=== PATIENT | male | born 1985 | race Hispanic/Latino ===

== ENCOUNTER 2020-05-02 12:07 | Emergency (ER) | payer OTHER ==
[2020-05-02] MEDS ORDERED: DIAZEPAM 5 MG TABLET ONE (12:53)
[2020-05-02] MEDS ORDERED: NA CHLORIDE 0.9% 1,000 ML ONE (12:53)
[2020-05-02 13:00] LABS: Absolute Lymphocytes (CBC) 1.3 K/uL (0.7-4.9); Basophils % 0.6 % (0-1.3); Hematocrit 41.2 % (39.6-49.0); Lymphocytes % 26.7 % (15.3-44.8); MPV 7.5 fL (7.6-11.3); RBC Red Blood Cell Count 4.38 M/uL (4.33-5.43)
[2020-05-02 13:12] LABS: Protime INR 0.97
[2020-05-02 13:16] LABS: Barbiturates NEGATIVE (NEGATIVE); Benzodiazepines NEGATIVE (NEGATIVE); Cocaine NEGATIVE (NEGATIVE); METHAMPHETAM NEGATIVE (NEGATIVE); Methadone NEGATIVE (NEGATIVE); Opiates NEGATIVE (NEGATIVE); Phencyclidine NEGATIVE (NEGATIVE); THC Cannibis NEGATIVE (NEGATIVE)
[2020-05-02 13:35] LABS: ALT/SGPT 28 U/L (12-78); Alkaline Phosphatase 54 U/L (45-117); BUN Blood Urea Nitrogen 6 mg/dL (7-18); Bicarbonate 26 mmol/L (21-32); Bilirubin Direct < 0.1 mg/dL (0-0.2); Bilirubin Total 0.2 mg/dL (0.2-1.0); Glucose Level 95 mg/dL (74-106); Protein, Total 8.2 g/dL (6.4-8.2); Sodium Level 144 mmol/L (136-145)
[2020-05-02 13:38] LABS: AST/SGOT 28 U/L (15-37); Potassium 3.7 mmol/L (3.5-5.1)
[2020-05-02 13:45] LABS: Urine Blood NEGATIVE (NEG); Urine Glucose NEGATIVE (NEG); Urine Protein NEGATIVE (NEG); Urine pH 6.5 (5.0-7.0)
[2020-05-02] MEDS ORDERED: LORazepam 2 MG/ML VIAL ONE (14:20)
--- NOTE | 2020-05-02 16:36 | EDPHYS ---
Physician Documentation [facility] Name: Victor Hugo Broussard JR. Age: 34 yrs Sex: Male : 1985 Arrival Date: 05/02/2020 Time: 12:08 Bed 17 Private MD: ED Physician Pelon Rogel HPI: 05/02 15:43 This 34 yrs old Male presents to ER via Law Enforcement with complaints of rn ALCOHOL ABUSE, Depression. 15:43 The patient presents to the emergency department with depression. Onset: The rn symptoms/episode began/occurred at an unknown time. Severity of symptoms: At their worst the symptoms were moderate in the emergency department the symptoms are unchanged. The patient has experienced similar episodes in the past. Reports drinking a lot since recent divorce, today told mother that having thoughts of , tells me was just talk, denies suicidal ideations at this moment, attributes it to heavy drinking, did not have a plan, and now states would not hurt himself because loves his ex- and children and wants to be there for them, plans to enroll in rehab program/facility. . Historical: - Allergies: 12:15 No Known Allergies; bp - Home Meds: 12:15 None [Active]; bp - PMHx: 12:15 None; bp - Immunization history:: Adult Immunizations up to date. - Social history:: Smoking status: Patient denies any tobacco usage or history of. Patient uses alcohol, patient/guardian reports recent binge of alcohol consumption. - Family history:: not pertinent. - Hospitalizations: : No recent hospitalization is reported. ROS: 15:43 Constitutional: Negative for fever, chills, and weight loss, Eyes: Negative for injury, rn pain, redness, and discharge, Neck: Negative for injury, pain, and swelling, Cardiovascular: Negative for chest pain, palpitations, and edema, Respiratory: Negative for shortness of breath, cough, wheezing, and pleuritic chest pain, Abdomen/GI: Negative for abdominal pain, nausea, vomiting, diarrhea, and constipation, MS/Extremity: Negative for injury and deformity, Skin: Negative for injury, rash, and discoloration, Neuro: Negative for headache, weakness, numbness, tingling, and seizure, Psych: Negative for homicidal ideation, and hallucinations. Exam: 14:04 ECG was reviewed by the Attending Physician. rn 15:43 Constitutional: This is a well developed, well nourished patient who is awake, alert, rn and in no acute distress. Tearful. Head/Face: Normocephalic, atraumatic. Cardiovascular: Regular rate and rhythm. No pulse deficits. Respiratory: No increased work of breathing, no retractions or nasal flaring. Abdomen/GI: Soft, non-tender Skin: Warm, dry MS/ Extremity: Pulses equal, no cyanosis. Neurovascular intact. Full, normal range of motion. Equal circumference. Neuro: Awake and alert, GCS 15, oriented to person, place, time, and situation. Cranial nerves II-XII grossly intact. Motor strength 5/5 in all extremities. Sensory grossly intact. Vital Signs: 12:09 BP 160 / 101; Pulse 89; Resp 18; Temp 98.3; Pulse Ox 99% ; bp 14:00 BP 157 / 99; Pulse 90; Resp 17; Pulse Ox 98% ; bp 16:00 BP 155 / 89; Pulse 81; Resp 17; Temp 98.4; Pulse Ox 98% ; bp MDM: 12:20 Patient medically screened. rn 16:33 Differential diagnosis: depression, ETOH intoxication. Data reviewed: vital signs, rn nurses notes, lab test result(s), and as a result, I will discharge patient. Counseling: I had a detailed discussion with the patient and/or guardian regarding: the historical points, exam findings, and any diagnostic results supporting the discharge/admit diagnosis, lab results, the need for outpatient follow up, to return to the emergency department if symptoms worsen or persist or if there are any questions or concerns that arise at home. Response to treatment: the patient's symptoms have markedly improved after treatment, and as a result, I will discharge patient. Special discussion: I discussed with the patient/guardian in detail that at this point there is no indication for admission to the hospital. It is understood, however, that if the symptoms persist or worsen the patient needs to return immediately for re-evaluation. Based on the history and exam findings, there is no indication for further emergent testing or inpatient evaluation. I discussed with the patient/guardian the need to see the psychiatrist for further evaluation of the symptoms. ED course: Pt sober, denies to me and nurse suicidal ideations, reports feels like just drank too much, knows drinking led him to his current situation, plans to seek rehab. Never had a plan, feels better now, spent half an hour speaking with liner reroll tender and feels better. . 05/02 12:29 Order name: Acetaminophen rn 05/02 12:29 Order name: Basic Metabolic Panel rn 05/02 12:29 Order name: CBC with Diff rn 05/02 12:29 Order name: ETOH Level rn 05/02 12:29 Order name: Hepatic Function rn 05/02 12:29 Order name: PT-INR; Complete Time: 16:20 rn 05/02 12:29 Order name: Ptt, Activated; Complete Time: 16:20 rn 05/02 12:29 Order name: Salicylate; Complete Time: 16:20 rn 05/02 12:29 Order name: Urine Drug Screen; Complete Time: 16:20 rn 05/02 12:30 Order name: Acetaminophen Level; Complete Time: 16:20 EDMS 05/02 12:30 Order name: Basic Metabolic Panel; Complete Time: 16:20 EDOK 05/02 12:30 Order name: CBC with Automated Diff; Complete Time: 16:20 EDOK 05/02 12:30 Order name: Alcohol Serum/Plasma; Complete Time: 16:20 EDMS 05/02 12:30 Order name: Liver (Hepatic) Function; Complete Time: 16:20 EDOK 05/02 12:29 Order name: EKG; Complete Time: 12:31 rn 05/02 12:29 Order name: EKG - Nurse/Tech; Complete Time: 12:55 rn 05/02 12:29 Order name: IV Saline Lock; Complete Time: 12:55 rn 05/02 12:29 Order name: Labs collected and sent; Complete Time: 12:55 rn 05/02 12:29 Order name: Urine Dipstick-Ancillary (obtain specimen); Complete Time: 12:55 rn 05/02 13:12 Order name: Urine Dipstick--Ancillary (enter results); Complete Time: 16:20 bd 05/02 15:01 Order name: Diet Finger Food; Complete Time: 15:01 bd EC:04 Rate is 81 beats/min. Rhythm is regular. QRS Goehner is Normal. DE interval is normal. QRS rn interval is normal. QT interval is normal. No Q waves. T waves are Normal. No ST changes noted. Clinical impression: Normal ECG. Interpreted by me. Reviewed by me. Administered Medications: 12:56 Drug: NS 0.9% 1000 ml Route: IV; Rate: 1000 ml; Site: right forearm; ca1 16:52 Follow up: IV Status: Completed infusion; IV Intake: 1000ml bp 12:57 Drug: Valium 5 mg Route: PO; ca1 15:55 Follow up: Response: No adverse reaction bp Disposition: 05/02/20 16:35 Discharged to Home. Impression: Alcohol abuse with intoxication, Depression, unspecified. - Condition is Stable. - Discharge Instructions: Alcohol Intoxication, Alcohol Use Disorder. - Medication Reconciliation Form, Thank You Letter, Antibiotic Education, Prescription Opioid Use form. - Follow up: Private Physician; When: As needed; Reason: Recheck today's complaints, Re-evaluation by your physician. - Problem is new. - Symptoms have improved. Signatures: Dispatcher [employer] EDMS Pelon Rogel MD MD rn Peltier, Brian RN RN bp Cynthia Rodriguez RN RN ca1 Corrections: (The following items were deleted from the chart) 16:52 16:35 05/02/2020 16:35 Discharged to Home. Impression: Alcohol abuse with intoxication; bp Depression, unspecified. Condition is Stable. Forms are Medication Reconciliation Form, Thank You Letter, Antibiotic Education, Prescription Opioid Use. Follow up: Private Physician; When: As needed; Reason: Recheck today's complaints, Re-evaluation by your physician. Problem is new. Symptoms have improved. rn
--- NOTE | 2020-05-02 16:36 | ER ---
Nurse's Notes [facility] Name: Victor Hugo Broussard JR. Age: 34 yrs Sex: Male : 1985 Arrival Date: 05/02/2020 Time: 12:08 Bed 17 Private MD: Diagnosis: Alcohol abuse with intoxication;Depression, unspecified Presentation: 05/02 12:09 Chief complaint: WELFARE CHECK CALLED BY FAMILY, [employer] ARRIVED ON SCENE TO FIND PT bp ARGUING WITH FAMILY, +ETOH INTOXICATION. PER FAMILY, PT HAS BEEN BINGE DRINKING AND STATING +SI WHILE INTOXICATED FOR 3 DAYS. ALL 2/2 RECENT DIVORCE. PT NOW STATING HE IS NOT SI, BUT IS DEPRESSED AND INTERESTED IN RECEIVING HELP. Coronavirus screen: Proceed with normal triage. Ebola Screen: No symptoms or risks identified at this time. Initial Sepsis Screen: Does the patient meet any 2 criteria? No. Patient's initial sepsis screen is negative. Does the patient have a suspected source of infection? No. Patient's initial sepsis screen is negative. Risk Assessment: Do you want to hurt yourself or someone else? Other: RECENT, BUT PT DENIES CURRENTLY. Onset of symptoms is unknown. 12:09 Method Of Arrival: Law Enforcement: [place] [employer] bp 12:09 Acuity: [place] 2 bp Triage Assessment: 12:15 General: Appears in no apparent distress. comfortable, Behavior is cooperative, bp appropriate for age, anxious. General: Smells of alcohol. Pain: Denies pain. EENT: No deficits noted. Neuro: Level of Consciousness is awake, alert, obeys commands, Oriented to person, place, time, situation, Appropriate for age. Cardiovascular: No deficits noted. Respiratory: No deficits noted. GI: No signs and/or symptoms were reported involving the gastrointestinal system. : No signs and/or symptoms were reported regarding the genitourinary system. Derm: No deficits noted. Musculoskeletal: No deficits noted. Historical: - Allergies: 12:15 No Known Allergies; bp - Home Meds: 12:15 None [Active]; bp - PMHx: 12:15 None; bp - Immunization history:: Adult Immunizations up to date. - Social history:: Smoking status: Patient denies any tobacco usage or history of. Patient uses alcohol, patient/guardian reports recent binge of alcohol consumption. - Family history:: not pertinent. - Hospitalizations: : No recent hospitalization is reported. Screenin:16 Abuse screen: Denies threats or abuse. Denies injuries from another. Nutritional bp screening: No deficits noted. Tuberculosis screening: No symptoms or risk factors identified. Fall Risk None identified. Assessment: 12:16 General: SEE TRIAGE NOTE. bp 14:00 Reassessment: PT SLEEPING AFTER LENGTHY CONVERSATION WITH DIGITAL SALES PLANNER. PT CONTINUES TO bp DENY SI/HI. 16:49 Reassessment: PT D/C HOME AMBULATORY WITH FAMILY, DENIES SI/HI, DX WITH ALCOHOL ABUSE bp AND DEPRESSION. Vital Signs: 12:09 BP 160 / 101; Pulse 89; Resp 18; Temp 98.3; Pulse Ox 99% ; bp 14:00 BP 157 / 99; Pulse 90; Resp 17; Pulse Ox 98% ; bp 16:00 BP 155 / 89; Pulse 81; Resp 17; Temp 98.4; Pulse Ox 98% ; bp ED Course: 12:08 Patient arrived in ED. bp 12:14 Triage completed. bp 12:15 Arm band placed on. bp 12:16 Patient has correct armband on for positive identification. Bed in low position. Call bp light in reach. Side rails up X2. 12:20 Pelon Rogel MD is Attending Physician. rn 12:43 Kobe Renteria, KETTY is Primary Nurse. bp 13:01 Inserted saline lock: 20 gauge in right forearm, using aseptic technique. dh4 15:55 Hepatic Function Sent. bp 15:55 ETOH Level Sent. bp 15:55 CBC with Diff Sent. bp 15:55 Basic Metabolic Panel Sent. bp 15:55 Acetaminophen Sent. bp 16:51 No provider procedures requiring assistance completed. IV discontinued, intact, bp bleeding controlled, No redness/swelling at site. Pressure dressing applied. Administered Medications: 12:56 Drug: NS 0.9% 1000 ml Route: IV; Rate: 1000 ml; Site: right forearm; ca1 16:52 Follow up: IV Status: Completed infusion; IV Intake: 1000ml bp 12:57 Drug: Valium 5 mg Route: PO; ca1 15:55 Follow up: Response: No adverse reaction bp Intake: 16:52 IV: 1000ml; Total: 1000ml. bp Outcome: 16:35 Discharge ordered by . rn 16:51 Discharged to home ambulatory, with family. bp 16:51 Condition: stable 16:51 Discharge instructions given to patient, Instructed on discharge instructions, follow up and referral plans. Demonstrated understanding of instructions, follow-up care. 16:52 Patient left the ED. bp Signatures: Pelon Rogel MD MD rn Peltier, Brian RN RN Cynthia Tillman RN KETTY [facility] Corrections: (The following items were deleted from the chart) 16:51 14:00 No provider procedures requiring assistance completed. bp bp 16:51 14:00 IV discontinued, intact, bleeding controlled, No redness/swelling at site. bp Pressure dressing applied, bp
[2020-05-03 03:50] VITALS: O2SAT 98
[2020-05-03 03:51] VITALS: BP 155/89; TEMP 98.4
--- NOTE | 2020-05-03 10:16 | EKG ---
Test Date: 2020-05-02 Test Time: 13:11:06 Inseam Trimming Machine Operator: MARGUERITE MEASUREMENT RESULTS: Intervals: Rate: 81 CT: 152 QRSD: 106 QT: 358 QTc: 415 [place]: P: 33 CT: 152 QRS: 8 T: 49 INTERPRETIVE STATEMENTS: Normal sinus rhythm Cannot rule out Anterior infarct, age undetermined Abnormal ECG Compared to ECG 01/31/2017 14:29:58 Myocardial infarct finding now present Electronically Signed On 05-03-20 10:14:01 CDT by William Melara
== END 2020-05-02 16:52 | disposition home or self-care (01) ==
LOC: ER 12:07
DX: F32.9 Major depressive disorder, single episode, unspecified (principal); F10.129 Alcohol abuse with intoxication, unspecified
CPT/HCPCS: 96361; 93005; 85025; 80048; 36415; 80320; 80329 ×2; 85610; 80076; 80307 ×8; 85730; 81003; 96360; 99283; J7030

== ENCOUNTER 2020-10-01 21:20 | Emergency (ER) | payer SELFPAY ==
--- OUTSIDE RECORDS SUMMARY | 2020-10-01 21:22 | XMS REPORT | Continuity of Care Document ---
:[address] [facility] t Address [address] [place] [address] Care Team Providers Name Role Phone Chilango HDEZ Attending Clinician Unavailable Lab, Fam Pob I Attending Clinician Unavailable Problems This patient has no known problems. Allergies, Adverse Reactions, Alerts This patient has no known allergies or adverse reactions. Medications This patient has no known medications. Procedures This patient has no known procedures. Encounters Start End Encounter Admission Attending Care Care Encounter Source Date/Time Date/Time Type Type Clinicians Facility Department ID 2020-10-01 2020-10-01 Nurse MORRO Kee [id number] 00:00:00 00:00:00 Triage Columba LUNA [id number] [facility] [id number] 2020-07-14 2020-07-14 Laboratory Lab, [facility] [id number] 13:11:18 13:44:38 Only Fam Pob I [facility] [id number] [place] [id number] [facility] [phone] [address]al [address] Results This patient has no known results.
--- OUTSIDE RECORDS SUMMARY | 2020-10-01 21:23 | XMS REPORT | Summary of Care ---
:1985 Author Organization [facility] Address [address] [place] [address] Care Team Providers Name Role Phone Unavailable Primary Care Provider Unavailable Reason for Visit Reason Comments Results COVID Encounter Details Date Type Department Care Team Description 07/16/2020 Telephone ACCESS [facility] Sushant Chavez MD Results (COVID) [address] [id number] [place], [place] [id number] Allergies No Known Allergiesdocumented as of this encounter (statuses as of 07/16/2020) Medications Medication Sig Dispensed Refills Start Date End Date Status losartan-hydrochlorothi Take 1 tablet by 90 tablet 3 8 Active azide 100-12.5 mg per mouth daily. tabletIndications: Essential hypertension, benign amLODIPine 10 mg Take 0.5 tablets 90 tablet 3 06/23/2018 Active tabletIndications: by mouth daily. Essential hypertension, benign LEVOTHYROXINE 50 mcg TAKE 1 TABLET BY 30 tablet 0 08/26/2018 Active tabletIndications: MOUTH EVERY Hypothyroidism, MORNING unspecified type documented as of this encounter (statuses as of 07/16/2020) Active Problems Problem Noted Date Hypertension, unspecified type 12/16/2017 Leg swelling 05/12/2016 Elevated LFTs Hypothyroidism Diabetes HLD (hyperlipidemia) documented as of this encounter (statuses as of 07/16/2020) Social History Tobacco Use Types Packs/Day Years Used Date Current Some Day Smoker Cigarettes 15 Smokeless Tobacco: Never Used Comments: 1 pack a month Alcohol Use Drinks/Week oz/Week Comments Yes 0 Standard drinks or equivalent 0.0 8-9 mixed drinks on weekends Sex Assigned at Date Recorded Not on file COVID-19 Exposure Response Date Recorded In the last month, have you been in contact with No / Unsure 07/14/2020 1:40 PM CDT someone who was confirmed or suspected to have Coronavirus / COVID-19? documented as of this encounter Last Filed Vital Signs Not on filedocumented in this encounter Miscellaneous Notes Telephone Encounter - Rian Almanza RN - 07/16/2020 1:04 PM CDTPatient id'd by name/, informed of positive covid results Your COVID 19 testing results were positive. At this time, the COVID 19 virus was detected in your sample. If this is the first time you tested positive for COVID 19, we recommend that you remain in self- quarantine along with those in your immediate household until you have been contacted by your [facility] health department who will work with you on when you may discontinue self- quarantine. In addition, your company's employee health department may have additional requirements for clearance to work. Please work with your [facility] health department to address those requirements. Please follow the advice you received in your After Visit Summary (AVS), the CDC document on what todo if you are sick with COVID and/or the CDC document on the COVID 19 test you received. Please stayinside and preferably in one room. Avoid close contact with your family and neighbors to prevent further spread. Wear a face mask if in the presence of someone else. Do not share household items such as dishes and toiletries. Be sure to clean your space thoroughly and wash your hands frequently. If you have symptoms, most people feel better within 7-14 days. If your symptoms are worsening and you feel very short of breath and you have difficulty performing basic tasks such as walking to the bathroomor preparing food, we would like you to contact the [facility] at [phone] or toll free to talk with a nurse or, if your symptoms are urgent, go to the nearest Emergency Room. Please wear a face mask and call prior to going to a healthcare facility. The local health department will be contacting you soon to follow up. If you are a [facility] or contract employee or student, please refer to this website for more information [email or web address]. If this is not the first positive result you received, please be advised that it is unclear, at thistime, how long the virus remains detectable in samples. It appears it could be weeks before a samplebecomes negative. The date of your first positive test and your current symptoms will determine whenyou may discontinue quarantine. Please work with the [facility] for instructions. For further guidance on when you can expect to discontinue quarantine and return to work, please visit the CDC website: https://www.cdc.gov/coronavirus/2019-ncov/hcp/nspxvxgzsvd-fe-uakm-patients.html. [facility] recommends the symptom-based strategy for those who have symptoms and the time-based strategy for those who do not have symptoms. Repeat testing is not routinely recommended for any reason due to the prolonged detection of the virus in samples without evidence of transmission. General guidance includes release from quarantine when the following conditions are met: ? At least 24 hours have passed since recovery defined as resolution of fever without the use of fever-reducing medications and ? Improvement in symptoms (e.g., cough, shortness of breath); and, ? At least 10 days have passed since symptoms first appeared or the first positive test if symptoms have not developed or worsened since testing, at which point, use date symptoms began. ? Continue to wear a face mask until 14 days have passed since your first test or first symptoms appeared. ? If you experience a worsening of symptoms or recover and then redevelop symptoms, please speak with a provider for further evaluation. Those in your household should remain in quarantine for 14 days to allow time for incubation, or, iftesting positive, should follow the above guidelines for discontinuing quarantine. Patient verbalized understanding, and I informed patient I sent him a mychart msg of this also. KRYSTAL Hsu, RN [facility] Access Center elephone Encounter - Jan Doran - 07/16/2020 12:51 PM JERMAINETVictor Hugo Oh Broussard is a 35 year old male. Patient is calling to receive his COVID results. Please call at [phone] (home) documented in this encounter Plan of Treatment Health Maintenance Due Date Last Done Comments VARICELLA VACCINES (1 of 2 - 1984 2-dose childhood series) EYE EXAM 1993 URINE MICROALBUMIN 1993 Depression Screening 1995 FOOT EXAM 2001 DTaP,Tdap,and Td Vaccines (1 2002 - Tdap) LDL-C 05/08/2017 05/08/2016, 03/28/2016 HgA1C 06/18/2018 12/16/2017, 05/08/2016 CREATININE (SERUM) 12/16/2018 12/16/2017, 03/28/2016 INFLUENZA VACCINE (#1) 2020 PNEUMOCOCCAL 0-64 YEARS Aged Out No longe r eligible based COMBINED SERIES on patient's age to complete this to pic documented as of this encounter Results Not on filedocumented in this encounter Additional Health Concerns Infection Onset Date Last Indicated Resolved Time COVID-19 Confirmed 07/14/2020 07/14/2020 documented as of this encounter
--- OUTSIDE RECORDS SUMMARY | 2020-10-01 21:23 | XMS REPORT | Summary of Care ---
:1985 Author Organization [facility] Address [address] [place] [address] Care Team Providers Name Role Phone Unavailable Primary Care Provider Unavailable Reason for Visit Reason Onset Date Comments Hypertension 10/01/2020 headache, chest pain Encounter Details Date Type Department Care Team Description 10/01/2020 Nurse Triage [facility] Columba Kee RN Hypertension [address] [place] [address] (headache, chest [address] pain) [place] [phone] Allergies No Known Allergiesdocumented as of this encounter (statuses as of 10/01/2020) Medications Medication Sig Dispensed Refills Start Date [...] as of this encounter (statuses as of 10/01/2020) Active Problems Problem Noted Date Hypertension, unspecified type 12/16/2017 Leg swelling 05/12/2016 Elevated LFTs Hypothyroidism Diabetes HLD (hyperlipidemia) documented as of this encounter (statuses as of 10/01/2020) Social History Tobacco Use Types Packs/Day Years Used Date Current Some Day Smoker Cigarettes 15 Smokeless Tobacco: Never Used Comments: 1 pack a month Alcohol Use Drinks/Week oz/Week Comments Yes 0 Standard drinks or equivalent 0.0 8-9 mixed drinks on weekends Sex Assigned at Date Recorded Not on file documented as of this encounter Last Filed Vital Signs Not on filedocumented in this encounter Miscellaneous Notes Telephone Encounter - Kee Columba, RN - 10/01/2020 8:02 PM CSTAdult Triage Assessment Last Clinic Visit: saw his private provider a few days ago and got medications to help control BP. He had been out of medications, thyroid and BP meds Primary Symptom: A few days ago hit high BP of 200/110 for the BP, now 140/80 but have had a headache since it was high. 124/70 this am. BP had been high for about a week or longer. He also had episodes of chest pain, palpitations, dizziness, pain in between shoulder blades. Last felt yesterday. He states he has woke up feeling like he was choking during the night several times. Onset / Duration: high bp for a few weeks, symptomatic the past few days. Now BP is under control but had chest pain yesterday and now headache that doesn't go away Location / Description: high blood pressure, headache Pain / Severity: back part of head hurts now 04/22 Associated Symptoms: hadn't taken BP meds for 2 weeks or longer so started it again. No vision changed. Sometime if getting up feels lightheaded for a few seconds. Happened twice today. Has already had Covid (Jul). He has had chest pain and dizziness, no chest pain today. Last time to feel chest painwas yesterday, like a sharp pain, not like constant pain with pain between shoulder blades as well. Palpitations. States he had not taken thyroid medication in over a year and just started back a few days ago Fever / Method: denies fever or illness. Hydration: Drinking normal amounts of fluids, urination is normal. Urine is clear to yellow Treatment so far: Losartan - HCTZ 100mg/12.5mg last taken this morning. Clonidine 0.2mg last taken 30 minutes ago. (takes bid). Has not taken anything for headache. Effect on ADL's: been more tired. Pre-existing condition / Immunocompromised: HTN, thyroid Reason for Disposition [1] MILD-MODERATE headache AND [2] present > 72 hours [1] Chest pain lasts > 5 minutes AND [2] occurred in past 3 days (72 hours) Protocols used: [id number], CHEST [id number] Nurses notes: Referred to ER for evaluation. Columba Kee RN elephone Encounter - Columba Kee RN - 10/01/2020 8:02 PM CSTRegarding: High BP X 2 days, current sxs: headaches, BP under control ----- Message from Romeo Willoughby sent at 10/01/2020 7:51 PM PEANUT PICKER ----- Victor Hugo Broussard is a 35 year old male High BP X 2 days, currently under control today but still having headaches. 140/80. [place] PICKER documented in this encounter Plan of Treatment [...]
--- OUTSIDE RECORDS SUMMARY | 2020-10-01 21:23 | XMS REPORT | Summary of Care ---
:1985 Author Organization [facility] - [facility] Address [address] [place] [address] Care Team Providers Name Role Phone Unavailable Primary Care Provider Unavailable Reason for Visit Reason Comments Exposure LAB Encounter Details Date Type Department Care Team Description 07/14/2020 Laboratory Only [facility] Family Lyssa Petit PA [address] [place] [address] [place] [address] Exposure to Medicine - [facility], Adc Fam Pob I SARS-associated [address] [place] [address] coronaviru s ([address] Dx) [place] [address] Allergies No Known Allergiesdocumented as of this encounter (statuses as of 07/14/2020) Medications Medication Sig Dispensed Refills Start Date [...] as of this encounter (statuses as of 07/14/2020) Active Problems Problem Noted Date Hypertension, unspecified type 12/16/2017 Leg swelling 05/12/2016 Elevated LFTs Hypothyroidism Diabetes HLD (hyperlipidemia) documented as of this encounter (statuses as of 07/14/2020) Social History Tobacco Use Types Packs/Day Years [...] Signs Not on filedocumented in this encounter Nursing Notes Brandee Gutiérrez MA - 07/14/2020 1:20 PM CDTVictor Hugo Broussard is a 35 year old male here for COVID Screening with a Nasopharyngeal Swab All droplet and contact precautions taken with appropriate PPE worn while interacting with patient. ? Goggles ? N95 Mask ? Gloves ? Gown RR 16 Pulse 87 Ox 98% Patient educated on plan of care for visit, swabbing technique, risks and benefits of test and length of time to receive results. Verbal consent obtained to perform test. CDC Fact Sheet for Patients nCoV Diagnostic Panel dated 12/27/2019 and Factsheet What to Do if Sick with COVID 19 12/07/19 provided. Bilate nares swabbed during COVID19 nasopharyngeal swab. Patient swabbed per appropriate nasopharyngeal technique, and patient tolerated well. Patient was discharged from the testing clinic in stable condition. BRANDEE GUTIÉRREZ MA 07/14/2020 1:39 PM documented in this encounter Plan of Treatment Name Type Priority Associated Diagnoses Order S chedule COVID-19 (PCR MOLECULAR LAB Routine Exposure to Expe cted: 07/14/2020, TESTING) SARS-associated Expires: 10/2020 coronavirus Health Maintenance Due Date Last Done Comments [...] Results Not on filedocumented in this encounter Visit Diagnoses Diagnosis Exposure to SARS-associated coronavirus - Primary documented in this encounter Additional Health Concerns Infection Onset Date Last Indicated Resolved Time COVID-19 Rule Out 07/14/2020 07/14/2020 documented as of this encounter
--- OUTSIDE RECORDS SUMMARY | 2020-10-01 21:23 | XMS REPORT | Summary of Care ---
:1985 Author Organization [facility] - Health Address [address] [place] [address] Care Team Providers Name Role Phone Unavailable Primary Care Provider Unavailable Encounter Details Date Type Department Care Team Description 07/14/2020 Letter (Out) [facility] Message s Doctor Unassigned, No [address] [facility] [place] [address] [address] [facility] [phone] [place] [address] Allergies No Known Allergiesdocumented as of this [...] Signs Not on filedocumented in this encounter Plan of Treatment Health [...]
--- OUTSIDE RECORDS SUMMARY | 2020-10-01 21:23 | XMS REPORT | Summary of Care ---
:1985 Author Organization [facility] - [facility] Address [address] [place] [address] Care Team Providers Name Role Phone Unavailable Primary Care Provider Unavailable Reason for Visit Reason Comments Exposure LAB Encounter Details Date Type Department Care Team Description 07/14/2020 Laboratory Only [facility] Family Lyssa Petit PA [address] [place] [address] [place] [address] Exposure to Medicine - [facility], Adc Fam Pob I SARS-associated [address] [place] [address] coronaviru s ([address] Dx) [place] [address] Allergies No Known Allergiesdocumented as of this encounter (statuses as of 07/18/2020) Medications Medication Sig Dispensed Refills Start Date [...] as of this encounter (statuses as of 07/18/2020) Active Problems Problem Noted Date Hypertension, unspecified type 12/16/2017 Leg swelling 05/12/2016 Elevated LFTs Hypothyroidism Diabetes HLD (hyperlipidemia) documented as of this encounter (statuses as of 07/18/2020) Social History Tobacco Use Types Packs/Day Years [...] to pic documented as of this encounter Procedures Procedure Name Priority Date/Time Associated Diagnosis Comme nts COVID-19 (PCR Routine 07/14/2020 1:19 PM Exposure to Results for this MOLECULAR TESTING) CDT SARS-associated proced ure are in coronavirus the results section. documented in this encounter Results COVID-19 (PCR MOLECULAR TESTING) (07/14/2020 1:19 PM CDT) Pathologist Sig nature SARS-CoV-2 PCR Positive (A) Not Detected [facility] Specimen Swab - NASOPHARYNGEAL SWAB Narrative Performed At [facility] SARS-CoV-2 Assay is a nucleic acid [facility] amplification test intended for the qualitative detect ion of RNA from SARS-CoV-2 from nasopharyngeal (SHUTTLE CAR [employer]PERATOR) specimens . It is used under Emergency Use Authorizatio n (EUA) by FDA. A positive result is indicative of the presence of SARS-CoV-2 RNA. Clinical correlation with patient hi story and other diagnostic information is necessary to deter mine patient infection status. A negative (Not Detected) result does not preclude SARS-CoV-2 infection. Clinical correlation with valerie ent history and other diagnostic information should be use d in patient management decisions. Invalid: Unable to generate a valid test result on thi s specimen. Please submit a new specimen for repeat te sting if clinically indicated. Performing Organization Address City/State/Zipcode Phone Number [facility] CLIA: [id number] [place] [address] [place] [address] documented in this encounter Visit Diagnoses Diagnosis Exposure to SARS-associated coronavirus - Primary documented in this encounter Additional Health Concerns Infection Onset Date Last Indicated Resolved Time COVID-19 Rule Out 07/14/2020 07/14/2020 07/15/2020 6: 36 PM CDT documented as of this encounter
--- NOTE | 2020-10-01 22:07 | ER ---
Nurse's Notes [facility] Name: Victor Hugo Broussard JR. Age: 35 yrs Sex: Male : 1985 Arrival Date: 10/01/2020 Time: 21:23 Bed Waiting Private MD: Diagnosis: Presentation: 10/01 21:32 Chief complaint: Patient states: SHEPHERD and tingling to scalp for 4 days. Took BP 200/111 a ll1 few days ago. Hadn't taken BP pill in 2-3 weeks. SHEPHERD, feeling bad since. No fever. Reports past couple nights awoke with gasping SOB that makes him cough and his heart race for a little bit. Coronavirus screen: Client denies travel out of the [place] in the last 14 days. At this time, the client does not indicate any symptoms associated with coronavirus-19. Ebola Screen: Patient denies travel to an Ebola-affected area in the 21 days before illness onset. Initial Sepsis Screen: Does the patient meet any 2 criteria? No. Patient's initial sepsis screen is negative. Does the patient have a suspected source of infection? No. Patient's initial sepsis screen is negative. Risk Assessment: Do you want to hurt yourself or someone else? Patient reports no desire to harm self or others. Onset of symptoms was September 28, 2020. 21:32 Method Of Arrival: Ambulatory ll1 21:32 Acuity: [place] 3 ll1 Historical: - Allergies: 21:37 No Known Allergies; ll1 - PMHx: 21:37 Hypertension; Hypothyroidism; ll1 - PSHx: 21:37 Hernia repair; ll1 - Immunization history:: Flu vaccine is not up to date. - Social history:: Smoking status: Patient reports the use of cigarette tobacco products, denies chronic smoking, but will smoke occasionally. Vital Signs: 21:32 BP 140 / 96; Pulse 70; Resp 17; Temp 98.0; Pulse Ox 99% ; Weight 94.35 kg; Height 5 ft. ll1 9 in. (175.26 cm); Pain 0/10; 21:32 Body Mass Index 30.72 (94.35 kg, 175.26 cm) ll1 ED Course: 21:23 Patient arrived in ED. ag3 21:37 Triage completed. ll1 21:37 Arm band placed on Patient placed in an exam room, on a stretcher. ll1 Administered Medications: No medications were administered Outcome: 22:07 Patient left the ED. jb4 Signatures: Jan Harper RN RN jb4 Phuong Miranda Lynsay, RN RN ll1
[2020-10-04 04:08] VITALS: BP 140/96; TEMP 98; O2SAT 99
== END 2020-10-01 22:07 | disposition left against medical advice (07) ==
LOC: ER 21:20
DX: Z53.21 Procedure and treatment not carried out due to patient leaving prior to being seen by health care provider (principal)
CPT/HCPCS: 99281

== ENCOUNTER 2020-10-03 20:34 | Emergency (ER) | payer SELFPAY ==
--- OUTSIDE RECORDS SUMMARY | 2020-10-03 20:38 | XMS REPORT | Continuity of Care Document ---
:[address] [facility] t Address [address] [place] [address] Dr. Lynn. [address] [place] [address] Care Team Providers Name Role Phone Chilango [...] ID 2020-10-01 2020-10-01 Nurse MORRO Kee [id number] 00:00:00 00:00:00 Triage Columba LUNA [id number] [facility] [id number] [phone] [id number] 2020-07-14 2020-07-14 Laboratory Lab, [facility] [id number] 13:11:18 13:44:38 Only Fam Pob I [facility] [id number] [place] [id number] Professio [phone] nal [address] One Results This patient has no known results.
[2020-10-03] MEDS ORDERED: ACETAMINOPHEN 325 MG TABLET ONE (22:03)
--- NOTE | 2020-10-03 22:27 | ER ---
Nurse's Notes [facility] Name: Victor Hugo Broussard JR. Age: 35 yrs Sex: Male : 1985 Arrival Date: 10/03/2020 Time: 20:37 Bed 4 Private MD: Mary Jacob Diagnosis: Essential (primary) hypertension Presentation: 10/03 20:51 Chief complaint: Patient states: BP was high at 175/115. Headache x 1 week, on and off, ca1 at the base of skull. Today, Headache was all day. Coronavirus screen: Client denies travel out of the [place] in the last 14 days. headache, Client presents with at least one sign or symptom that may indicate coronavirus-19. Standard/surgical mask placed on the client. Provider contacted for isolation considerations. Ebola Screen: Patient negative for fever greater than or equal to 101.5 degrees Fahrenheit, and additional compatible Ebola Virus Disease symptoms Patient denies exposure to infectious person. Patient denies travel to an Ebola-affected area in the 21 days before illness onset. No symptoms or risks identified at this time. Initial Sepsis Screen: Does the patient meet any 2 criteria? No. Patient's initial sepsis screen is negative. Does the patient have a suspected source of infection? No. Patient's initial sepsis screen is negative. Risk Assessment: Do you want to hurt yourself or someone else? Patient reports no desire to harm self or others. Onset of symptoms was October 03, 2020. 20:51 Method Of Arrival: Ambulatory ca1 20:51 Acuity: [place] 3 ca1 Triage Assessment: 21:00 General: Appears in no apparent distress. uncomfortable, Behavior is calm, cooperative, rr5 appropriate for age. 21:00 Pain: Complains of pain in head Pain currently is 8 out of 10 on a pain scale. Quality rr5 of pain is described as aching, Pain began gradually, Is intermittent. Historical: - Allergies: 21:02 No Known Allergies; ca1 - Home Meds: 21:02 clonidine HCl 0.2 mg Oral tab 1 tab 2 times per day [Active]; ca1 losartan-hydrochlorothiazide 100-12.5 mg oral tab 1 tab once daily [Active]; - PMHx: 21:02 Hypertension; Hypothyroidism; ca1 - PSHx: 21:02 Hernia repair; ca1 - Immunization history:: Adult Immunizations up to date, Flu vaccine is not up to date. - Social history:: Smoking status: Patient reports the use of cigarette tobacco products, denies chronic smoking, but will smoke occasionally, Patient/guardian denies using alcohol, street drugs, The patient lives with family. - Family history:: not pertinent. Screenin:20 Abuse screen: Denies threats or abuse. Denies injuries from another. Nutritional rr5 screening: No deficits noted. Tuberculosis screening:. Fall Risk None identified. Total Zuñiga Fall Scale indicates No Risk (0-24 pts). Assessment: 21:00 General: Appears in no apparent distress. uncomfortable, Behavior is calm, cooperative, rr5 appropriate for age. Pain: Complains of pain in head Pain currently is 8 out of 10 on a pain scale. Quality of pain is described as aching, Pain began gradually, Is intermittent. Neuro: Level of Consciousness is awake, alert, obeys commands, Oriented to person, place, time, situation, Reports headache. Cardiovascular: Capillary refill < 3 seconds Patient's skin is warm and dry. 21:00 Respiratory: Airway is patent Respiratory effort is even, unlabored, Respiratory rr5 pattern is regular, symmetrical. GI: No signs and/or symptoms were reported involving the gastrointestinal system. : No signs and/or symptoms were reported regarding the genitourinary system. EENT: No signs and/or symptoms were reported regarding the EENT system. Derm: Skin is intact, is healthy with good turgor, Skin temperature is warm. Musculoskeletal: Capillary refill < 3 seconds, Reports pain in back of head and neck. 21:48 Reassessment: pt educated on blood pressure, stress and anxiety and the importance of dm5 developing and following up with PCP. 22:27 Reassessment: Patient appears in no apparent distress at this time. discharge order rr5 cancelled. complaint still hurting Patient states symptoms have not improved. 10/04 00:05 Reassessment: Patient appears in no apparent distress at this time. Patient is alert, rr5 oriented x 3, equal unlabored respirations, skin warm/dry/pink. discharge instruction given and explained without complaints made Patient states feeling better. Patient states symptoms have improved. Vital Signs: 10/03 20:51 BP 144 / 101; Pulse 77; Resp 18 S; Temp 97.2(TE); Pulse Ox 99% on R/A; Weight 94.35 kg ca1 (R); Height 5 ft. 9 in. (175.26 cm) (R); Pain 8/10; 22:09 BP 131 / 88; Pulse 70; Resp 18; Pulse Ox 100% ; ea 23:00 BP 126 / 89; Pulse 76; Resp 17; Pulse Ox 98% ; rr5 10/04 00:00 BP 121 / 74; Pulse 74; Resp 19; Pulse Ox 99% ; rr5 10/03 20:51 Body Mass Index 30.72 (94.35 kg, 175.26 cm) ca1 ED Course: 10/03 20:37 Patient arrived in ED. am2 20:38 Mary Jacob is Private Physician. am2 21:00 Triage completed. ca1 21:02 Arm band placed on right wrist. ca1 21:26 Grayson Vaz MD is Attending Physician. ma2 21:30 Mark Moses RN is Primary Nurse. rr5 22:40 Inserted saline lock: 20 gauge in right forearm, using aseptic technique. Blood rr5 collected. 22:44 Patient has correct armband on for positive identification. Placed in gown. Bed in low rr5 position. Call light in reach. Pulse ox on. NIBP on. 23:11 CT Head Brain wo Cont In Process Unspecified. EDMS 10/04 00:00 No provider procedures requiring assistance completed. IV discontinued, intact, rr5 bleeding controlled, No redness/swelling at site. Pressure dressing applied. Administered Medications: 10/03 21:50 Drug: Tylenol 650 mg Route: PO; rr5 23:30 Follow up: Response: No adverse reaction; No change in condition rr5 22:40 Drug: NS 0.9% 1000 ml Route: IV; Rate: 1 bolus; Site: right forearm; rr5 23:50 Follow up: Response: No adverse reaction; IV Status: Completed infusion; IV Intake: rr5 1000ml 22:40 Drug: TORadol 30 mg Route: IVP; Site: right forearm; rr5 23:30 Follow up: Response: No adverse reaction; Pain is decreased rr5 22:42 Drug: Benadryl 50 mg Route: IVP; Site: right forearm; rr5 23:30 Follow up: Response: No adverse reaction; Pain is decreased rr5 22:45 Drug: Reglan 20 mg Route: IVP; Site: right forearm; rr5 23:30 Follow up: Response: No adverse reaction; Pain is decreased rr5 Intake: 23:50 IV: 1000ml; Total: 1000ml. rr5 Outcome: 22:27 Discharge ordered by MD. obrien 23:41 Discharge ordered by MD. obrien 10/04 00:00 Discharged to home ambulatory. rr5 Condition: stable Discharge instructions given to patient, Instructed on discharge instructions, follow up and referral plans. medication usage, Demonstrated understanding of instructions, follow-up care, medications, Prescriptions given X 1. 00:08 Patient left the ED. rr5 Signatures: Dispatcher [employer] EDMS Yolanda Brooks RN RN Mari Nguyen Elena RN Grayson Colunga ea, MD MD ma2 Roque, Raymond, RN RN rr5 Cynthia Rodriguez RN KETTY ca1 Corrections: (The following items were deleted from the chart) 00:15 00:10 Reassessment: Patient appears in no apparent distress at this time. discharge rr5 order cancelled. complaint still hurting Patient states symptoms have not improved. rr5
--- NOTE | 2020-10-03 22:27 | EDPHYS ---
Physician Documentation [facility] Name: Victor Hugo Broussard JR. Age: 35 yrs Sex: Male : 1985 Arrival Date: 10/03/2020 Time: 20:37 Bed 4 Private MD: Mary Jacob ED Physician Grayson Vaz HPI: 10/03 22:24 This 35 yrs old Male presents to ER via Ambulatory with complaints of High ma2 Blood Pressure, back of head/neck pain. 22:24 The patient has elevated blood pressure and discovered this at home. Onset: The ma2 symptoms/episode began/occurred gradually, 1 month(s) ago. Associated signs and symptoms: Pertinent negatives: dyspnea, nausea, vomiting, weakness. Severity of symptoms: At its worst the blood pressure was mild, in the emergency department the blood pressure is now normal. The blood pressure problem is resolved. The patient has experienced similar episodes in the past. here with asymptomatic htn, he is diagnosed with htn, not compliant on his medication, here because bp reading was high at hime, he does have chronic tension like occipital headache that is mild and gradual unchanged from his baseline headache, he took his bp medicine at home, bp start to improve, has no symptoms now.. . Historical: - Allergies: 21:02 No Known Allergies; ca1 - Home Meds: 21:02 clonidine HCl 0.2 mg Oral tab 1 tab 2 times per day [Active]; ca1 losartan-hydrochlorothiazide 100-12.5 mg oral tab 1 tab once daily [Active]; - PMHx: 21:02 Hypertension; Hypothyroidism; ca1 - PSHx: 21:02 Hernia repair; ca1 - Immunization history:: Adult Immunizations up to date, Flu vaccine is not up to date. - Social history:: Smoking status: Patient reports the use of cigarette tobacco products, denies chronic smoking, but will smoke occasionally, Patient/guardian denies using alcohol, street drugs, The patient lives with family. - Family history:: not pertinent. ROS: 22:24 Constitutional: Negative for fever, chills, and weight loss. ma2 22:24 All other systems are negative. Exam: 22:24 Constitutional: This is a well developed, well nourished patient who is awake, alert, ma2 and in no acute distress. Head/Face: Normocephalic, atraumatic. Eyes: Pupils equal round and reactive to light, extra-ocular motions intact. Lids and lashes normal. Conjunctiva and sclera are non-icteric and not injected. Cornea within normal limits. Periorbital areas with no swelling, redness, or edema. ENT: Nares patent. No nasal discharge, no septal abnormalities noted. Tympanic membranes are normal and external auditory canals are clear. Oropharynx with no redness, swelling, or masses, exudates, or evidence of obstruction, uvula midline. Mucous membranes moist. Neck: Trachea midline, no thyromegaly or masses palpated, and no cervical lymphadenopathy. Supple, full range of motion without nuchal rigidity, or vertebral point tenderness. No Meningismus. Chest/axilla: Normal chest wall appearance and motion. Nontender with no deformity. No lesions are appreciated. Cardiovascular: Regular rate and rhythm with a normal S1 and S2. No gallops, murmurs, or rubs. Normal PMI, no JVD. No pulse deficits. Respiratory: Lungs have equal breath sounds bilaterally, clear to auscultation and percussion. No rales, rhonchi or wheezes noted. No increased work of breathing, no retractions or nasal flaring. Abdomen/GI: Soft, non-tender, with normal bowel sounds. No distension or tympany. No guarding or rebound. No evidence of tenderness throughout. Back: No spinal tenderness. No costovertebral tenderness. Full range of motion. Skin: Warm, dry with normal turgor. Normal color with no rashes, no lesions, and no evidence of cellulitis. MS/ Extremity: Pulses equal, no cyanosis. Neurovascular intact. Full, normal range of motion. Neuro: Awake and alert, GCS 15, oriented to person, place, time, and situation. Cranial nerves II-XII grossly intact. Motor strength 5/5 in all extremities. Sensory grossly intact. Cerebellar exam normal. Normal gait. Psych: Awake, alert, with orientation to person, place and time. Behavior, mood, and affect are within normal limits. Vital Signs: 20:51 BP 144 / 101; Pulse 77; Resp 18 S; Temp 97.2(TE); Pulse Ox 99% on R/A; Weight 94.35 kg ca1 (R); Height 5 ft. 9 in. (175.26 cm) (R); Pain 8/10; 22:09 BP 131 / 88; Pulse 70; Resp 18; Pulse Ox 100% ; ea 23:00 BP 126 / 89; Pulse 76; Resp 17; Pulse Ox 98% ; rr5 10/04 00:00 BP 121 / 74; Pulse 74; Resp 19; Pulse Ox 99% ; rr5 10/03 20:51 Body Mass Index 30.72 (94.35 kg, 175.26 cm) ca1 MDM: 10/03 21:27 Patient medically screened. ma2 22:24 Differential diagnosis: tension headache vs migraine headache that is resolved, here ma2 with asymptomatic htn that is resloved as well. Data reviewed: vital signs, nurses notes. Counseling: I had a detailed discussion with the patient and/or guardian regarding: the historical points, exam findings, and any diagnostic results supporting the discharge/admit diagnosis, the presence of at least one elevated blood pressure reading (>120/80) during this emergency department visit, the need for outpatient follow up. Response to treatment: the patient's symptoms have resolved after treatment. 10/03 22:35 Order name: CMP; Complete Time: 23:33 ma2 10/03 22:35 Order name: Troponin I; Complete Time: 23:33 ma2 10/03 22:35 Order name: CT Head Brain wo Cont ma2 10/03 22:35 Order name: CBC with Diff; Complete Time: 23:33 ma2 10/03 21:41 Order name: EKG - Nurse/Tech; Complete Time: 22:09 ma2 Administered Medications: 21:50 Drug: Tylenol 650 mg Route: PO; rr5 23:30 Follow up: Response: No adverse reaction; No change in condition rr5 22:40 Drug: NS 0.9% 1000 ml Route: IV; Rate: 1 bolus; Site: right forearm; rr5 23:50 Follow up: Response: No adverse reaction; IV Status: Completed infusion; IV Intake: rr5 1000ml 22:40 Drug: TORadol 30 mg Route: IVP; Site: right forearm; rr5 23:30 Follow up: Response: No adverse reaction; Pain is decreased rr5 22:42 Drug: Benadryl 50 mg Route: IVP; Site: right forearm; rr5 23:30 Follow up: Response: No adverse reaction; Pain is decreased rr5 22:45 Drug: Reglan 20 mg Route: IVP; Site: right forearm; rr5 23:30 Follow up: Response: No adverse reaction; Pain is decreased rr5 Disposition: 10/03/20 23:41 Discharged to Home. Impression: Essential (primary) hypertension. - Condition is Stable. - Discharge Instructions: Hypertension. - Prescriptions for Reglan 10 mg Oral Tablet - take 1 tablet by ORAL route every 6 hours . take 30 minutes before meals and at bedtime; 100 tablet. - Medication Reconciliation Form, Thank You Letter, Antibiotic Education, Prescription Opioid Use form. - Follow up: Private Physician; When: Tomorrow; Reason: Continuance of care. Signatures: Dispatcher [employer] EDMS Grayson Vaz MD MD ma2 Mark Moses RN RN rr5 Cynthia Rodriguez RN RN ca1 Corrections: (The following items were deleted from the chart) 22:34 22:27 10/03/2020 22:27 Discharged to Home. Impression: Essential (primary) ma2 hypertension. Condition is Stable. Forms are Medication Reconciliation Form, Thank You Letter, Antibiotic Education, Prescription Opioid Use. Follow up: Private Physician; When: Tomorrow; Reason: Continuance of care. ma2 10/04 00:08 10/03 23:41 10/03/2020 23:41 Discharged to Home. Impression: Essential (primary) rr5 hypertension. Condition is Stable. Prescriptions for Reglan 10 mg Oral Tablet - take 1 tablet by ORAL route every 6 hours . take 30 minutes before meals and at bedtime; 100 tablet. and Forms are Medication Reconciliation Form, Thank You Letter, Antibiotic Education, Prescription Opioid Use. Follow up: Private Physician; When: Tomorrow; Reason: Continuance of care. ma2
[2020-10-03 22:53] LABS: Absolute Lymphocytes (CBC) 1.9 K/uL (0.7-4.9); Basophils % 0.7 % (0-1.3); Hematocrit 41.5 % (39.6-49.0); Lymphocytes % 23.5 % (15.3-44.8); MPV 7.6 fL (7.6-11.3); RBC Red Blood Cell Count 4.54 M/uL (4.33-5.43)
[2020-10-03] MEDS ORDERED: METOCLOPRAMIDE 10 MG/2mL INJ ONE (22:54)
[2020-10-03] MEDS ORDERED: DIPHENHYDRAMINE 50 MG/ML VIAL ONE (22:54)
[2020-10-03] MEDS ORDERED: KETOROLAC 30 MG/ML INJ ONE (22:55)
[2020-10-03] MEDS ORDERED: NA CHLORIDE 0.9% 1,000 ML ONE (22:55)
[2020-10-03 23:14] LABS: ALT/SGPT 21 U/L (12-78); AST/SGOT 19 U/L (15-37); Albumin 4.1 g/dL (3.4-5.0); Alkaline Phosphatase 52 U/L (45-117); BUN Blood Urea Nitrogen 11 mg/dL (7-18); Bicarbonate 29 mmol/L (21-32); Bilirubin Total 0.5 mg/dL (0.2-1.0); Glucose Level 109 mg/dL (74-106); Potassium 3.5 mmol/L (3.5-5.1); Protein, Total 8.3 g/dL (6.4-8.2); Sodium Level 137 mmol/L (136-145); Troponin I < 0.02 ng/mL (0.0-0.045)
--- NOTE | 2020-10-04 13:21 | RAD REPORT ---
EXAM DESCRIPTION: CT - Head Brain Wo Cont - 10/04/2020 6:58 am CLINICAL HISTORY: HEADACHE COMPARISON: None available TECHNIQUE: Axial CT of the head obtained from the skull apex to the skull base without contrast. FINDINGS: No acute intracranial hemorrhage identified. No mass, mass effect, shift of the midline, a bnormal extra-axial fluid collection or CT evidence of acute ischemic change identified. The ventricu lar system is unremarkable. No acute abnormalities of the supratentorial white matter, basal gangli a, cerebellum, or brainstem. Minimal mucosal thickening of the paranasal sinuses. Mastoid air cells are well aerated. No skull fra cture identified. Visualized orbits and globes are unremarkable. IMPRESSION: 1. No acute intracranial abnormality identified. This exam was performed according to our departmental dose-optimization program, which includes autom ated exposure control, adjustment of the mA and/or kV according to patient size and/or use of iterati ve reconstruction technique. Electronically signed by: Amado Mcelroy 10/03/2020 11:21 PM KEY FILER Due to temporary technical issues with the PACS/Fluency reporting system, reports are being signed by the in house radiologists without review as a courtesy to insure prompt reporting. The interpreting radiologist is fully responsible for the content of the report.
[2020-10-05 03:44] VITALS: TEMP 97.2
[2020-10-05 03:45] VITALS: BP 131/88; O2SAT 100
== END 2020-10-04 00:08 | disposition home or self-care (01) ==
LOC: ER 20:34
DX: I10 Essential (primary) hypertension (principal); E03.9 Hypothyroidism, unspecified; F17.210 Nicotine dependence, cigarettes, uncomplicated
CPT/HCPCS: 36415; 70450; 80053; 84484; 85025; 93005; 96361; 96374; 96375; 99284; J1200; J2765; J7030

== ENCOUNTER 2021-04-26 18:58 | Emergency (ER) | payer SELFPAY ==
--- OUTSIDE RECORDS SUMMARY | 2021-04-26 19:00 | XMS REPORT | Continuity of Care Document ---
:1985 Author Organization [facility] t Address [address] [place] [address] [address] [place] [address] Care Team Providers Name Role Phone Ashtyn MARTINEZ Attending Clinician Lab, Fam Pob I Attending Clinician Unavailable Kee RN Attending Clinician Unavailable Problems This patient has no known problems. Allergies, Adverse Reactions, Alerts This patient has no known allergies or adverse reactions. Medications This patient has no known medications. Procedures This patient has no known procedures. Encounters Start End Encounter Admission Attending Care Care Encounter Source Date/Time Date/Time Type Type Clinicians Facility Department ID 2021-02-02 2021-02-02 Telephone YIN Chamorro [id number] 00:00:00 00:00:00 [facility] [id number] [place] [id number] Professio [phone] nal [address] 2021-01-31 2021-01-31 Laboratory Lab, [facility] [id number] 11:41:15 12:01:15 Only Fam Pob I [facility] [id number] [place] [id number] Professio [phone] nal [address] 2020-10-01 2020-10-01 Nurse MORRO Kee [id number] 00:00:00 00:00:00 Triage [facility] JEREMY [id number] [facility] [id number] [id number] 2020-07-14 2020-07-14 Laboratory Lab, [facility] [id number] 13:11:18 13:44:[address] [facility] [id number] [place] [id number] Professio [phone] nal 044 [address] Results This patient has no known results.
[2021-04-26 20:08] LABS: Urine Blood Negative (Negative); Urine Glucose Negative (Negative); Urine Protein Negative (Negative); Urine Specific Gravity 1.015 (1.005-1.030); Urine pH 6.5 (5.0-7.0)
[2021-04-26] MEDS ORDERED: LORazepam 2 MG/ML VIAL ONE ×2 (20:10→20:35)
[2021-04-26] MEDS ORDERED: NA CHLORIDE 0.9% 1,000 ML ONE (20:11)
--- NOTE | 2021-04-26 20:14 | RAD REPORT ---
EXAM DESCRIPTION: Kathy Single View04/26/2021 7:48 pm CLINICAL HISTORY: Chest pain COMPARISON: none FINDINGS: The lungs appear clear of acute infiltrate. The heart is normal size IMPRESSION: No acute abnormalities displayed
[2021-04-26 20:15] LABS: Absolute Lymphocytes (CBC) 1.9 K/uL (0.7-4.9); Basophils % 0.3 % (0-1.3); Hematocrit 43.2 % (39.6-49.0); MPV 7.6 fL (7.6-11.3); RBC Red Blood Cell Count 4.83 M/uL (4.33-5.43)
[2021-04-26 20:24] LABS: Barbiturates NEGATIVE (NEGATIVE); Benzodiazepines NEGATIVE (NEGATIVE); Cocaine POSITIVE (NEGATIVE); METHAMPHETAM NEGATIVE (NEGATIVE); Methadone NEGATIVE (NEGATIVE); Opiates NEGATIVE (NEGATIVE); Phencyclidine NEGATIVE (NEGATIVE); THC Cannibis NEGATIVE (NEGATIVE)
[2021-04-26 20:33] LABS: ALT/SGPT 24 U/L (12-78); AST/SGOT 17 U/L (15-37); Albumin 4.1 g/dL (3.4-5.0); Alkaline Phosphatase 63 U/L (45-117); BUN Blood Urea Nitrogen 7 mg/dL (7-18); Bicarbonate 27 mmol/L (21-32); Bilirubin Direct 0.2 mg/dL (0-0.2); Bilirubin Total 0.7 mg/dL (0.2-1.0); Glucose Level 110 mg/dL (74-106); Magnesium 2.2 mg/dL (1.8-2.4); NT PRO-BNP 38 pg/mL (<125); Potassium 3.2 mmol/L (3.5-5.1); Sodium Level 137 mmol/L (136-145); Troponin (Emerg Dept Use Only) < 0.02 ng/mL (0.0-0.045)
--- NOTE | 2021-04-26 21:33 | ER ---
Nurse's Notes [facility] Name: Victor Hugo Broussard JR. Age: 35 yrs Sex: Male : 1985 Arrival Date: 04/26/2021 Time: 19:00 Bed 19 Private MD: Diagnosis: Presentation: 04/26 19:09 Chief complaint: Patient states: Did cocaine since Saturday, SOB started about 5 hours jl7 ago, Constant left sided CP radiates to left arm x 1 hour. Coronavirus screen: Client denies travel out of the [place] in the last 14 days. At this time, the client does not indicate any symptoms associated with coronavirus-19. Ebola Screen: No symptoms or risks identified at this time. Initial Sepsis Screen: Does the patient meet any 2 criteria? No. Patient's initial sepsis screen is negative. Does the patient have a suspected source of infection? No. Patient's initial sepsis screen is negative. Risk Assessment: Do you want to hurt yourself or someone else? Patient reports no desire to harm self or others. Onset of symptoms was April 26, 2021. 19:09 Method Of Arrival: Ambulatory [facility] 19:09 Acuity: [place] 2 jl7 Triage Assessment: 20:02 Respiratory: Reports shortness of breath Onset: The symptoms/episode began/occurred jm8 suddenly, the patient has moderate shortness of breath. Historical: - Allergies: 19:11 No Known Allergies; jl7 - Home Meds: 19:11 clonidine HCl 0.2 mg Oral tab 1 tab 2 times per day [Active]; jl7 losartan-hydrochlorothiazide 100-12.5 mg Oral tab 1 tab once daily [Active]; - PMHx: 19:11 Hypertension; Hypothyroidism; jl7 - Immunization history:: Adult Immunizations up to date, Client reports having NOT received the Covid vaccine. - Social history:: Smoking status: Patient reports the use of cigarette tobacco products, smokes one-half pack cigarettes per day, Patient uses alcohol, on a daily basis. claims drinking about a 6 pack/day. street drugs, cocaine. Screenin:00 Abuse screen: Denies threats or abuse. Denies injuries from another. Nutritional jm8 screening: No deficits noted. Tuberculosis screening: No symptoms or risk factors identified. Fall Risk None identified. Assessment: 20:01 General: Appears in no apparent distress. uncomfortable, Behavior is cooperative, jm8 appropriate for age, anxious. Pain: Complains of pain in chest Pain currently is 10 out of 10 on a pain scale. Neuro: No deficits noted. Level of Consciousness is awake, alert, obeys commands, Oriented to person, place, time, situation. Cardiovascular: Reports chest pain, Patient's skin is warm and dry. Rhythm is Chest pain is described as severe, quality is pressure. Respiratory: Airway is patent Trachea midline Respiratory effort is even, labored, Respiratory pattern is symmetrical, tachypnea Breath sounds are clear. GI: No deficits noted. No signs and/or symptoms were reported involving the gastrointestinal system. : No deficits noted. No signs and/or symptoms were reported regarding the genitourinary system. EENT: No deficits noted. No signs and/or symptoms were reported regarding the EENT system. Derm: No deficits noted. No signs and/or symptoms reported regarding the dermatologic system. Musculoskeletal: No deficits noted. No signs and/or symptoms reported regarding the musculoskeletal system. 21:31 Reassessment: Patient removes IV at this time. States he wants to leave AMA Patient jm8 denies pain at this time. Patient states feeling better. Patient states symptoms have improved. 21:32 Reassessment: Patient leaves AMA at this time Patient states feeling better. jm8 Vital Signs: 19:09 BP 181 / 110; Pulse 128; Resp 21; Temp 98.9; Pulse Ox 98% ; Weight 86.18 kg; Height 5 jl7 ft. 8 in. (172.72 cm); Pain 10/10; 21:31 BP 147 / 91; Pulse 97; Resp 18; Pulse Ox 99% on R/A; jm8 19:09 Body Mass Index 28.89 (86.18 kg, 172.72 cm) jl7 ED Course: 19:00 Patient arrived in ED. bp1 19:11 Triage completed. jl7 19:11 Arm band placed on right wrist. jl7 19:15 Nilo Cutler MD is Attending Physician. ps1 19:47 Ruby Tapia, KETTY is Primary Nurse. kg 19:48 XRAY Chest (1 view) In Process Unspecified. EDMS 20:02 Patient has correct armband on for positive identification. Bed in low position. Call 8 light in reach. Side rails up X2. Adult w/ patient. 20:02 No provider procedures requiring assistance completed. Inserted saline lock: 20 gauge jm8 in right antecubital area, using aseptic technique. 21:33 IV discontinued, intact, bleeding controlled, No redness/swelling at site. jm8 Administered Medications: 19:55 Drug: Ativan (LORazepam) 1 mg Route: IVP; Site: right antecubital; jm8 21:34 Follow up: Response: No adverse reaction jm8 19:55 Drug: NS 0.9% 1000 ml Route: IV; Rate: 100 ml/hr; Site: right antecubital; jm8 21:33 Follow up: IV Status: Completed infusion jm8 20:20 Drug: Ativan (LORazepam) 1 mg Route: IVP; Site: right antecubital; jm8 21:35 Follow up: Response: No adverse reaction; Anxiety decreased jm8 Outcome: 21:32 AMA AMA form signed jm8 21:32 Condition: good 21:32 Instructed on follow up and referral plans. Demonstrated understanding of instructions. 21:33 Patient left the ED. jm8 Signatures: Dispatcher [employer] Kemar Jolly RN RN jl7 Nilo Cutler MD MD ps1 Sharona Chowdhury Joseph, RN RN jm8 Ruby Tapia RN RN kg Corrections: (The following items were deleted from the chart) 19:25 19:11 Social history: Smoking status: Patient reports the use of cigarette tobacco ps1 products, smokes one-half pack cigarettes per day, Patient uses alcohol, on a daily basis. claims drinking about a 6 pack/day. street drugs, cocaine, oswaldo 21:32 21:31 Reassessment: Patient removes IV at this time. States he wants to leave AMA jm8 jm8
--- NOTE | 2021-04-26 21:33 | EDPHYS ---
Physician Documentation [facility] Name: Victor Hugo Broussard JR. Age: 35 yrs Sex: Male : 1985 Arrival Date: 04/26/2021 Time: 19:00 Bed 19 Private MD: ED Physician Nilo Cutler HPI: 04/26 19:20 This 35 yrs old Male presents to ER via Ambulatory with complaints of ps1 Shortness Of Breath, Arm Pain, -Sharp. 19:20 The patient has shortness of breath at rest, Attests to using cocaine and ETOH for last ps1 3 days. No sleep. Using insufflation. No hx of IVDA. No history of PE. Associated with shortness of breath. Appears anxious but not in distress. Aroma of alcohol. Pain is left chest, radiating to left arm. Rated as moderate. Attempting to take a deep breath makes it worse. . 19:20 Has history of high BP. Supposed to be taking clonidine but is non-compliant. Has not ps1 taken medication for 3 months. . Historical: - Allergies: 19:11 No Known Allergies; jl7 - Home Meds: 19:11 clonidine HCl 0.2 mg Oral tab 1 tab 2 times per day [Active]; jl7 losartan-hydrochlorothiazide 100-12.5 mg Oral tab 1 tab once daily [Active]; - PMHx: 19:11 Hypertension; Hypothyroidism; jl7 - Immunization history:: Adult Immunizations up to date, Client reports having NOT received the Covid vaccine. - Social history:: Smoking status: Patient reports the use of cigarette tobacco products, smokes one-half pack cigarettes per day, Patient uses alcohol, on a daily basis. claims drinking about a 6 pack/day. street drugs, cocaine. ROS: 19:20 Constitutional: Negative for fever, chills, and weight loss. ps1 19:20 Eyes: Negative for injury, pain, redness, and discharge, Abdomen/GI: Negative for abdominal pain, nausea, vomiting, diarrhea, and constipation, MS/Extremity: Negative for injury and deformity, Skin: Negative for injury, rash, and discoloration, Neuro: Negative for headache, weakness, numbness, tingling, and seizure. 19:20 Cardiovascular: Positive for chest pain. 19:20 Respiratory: Positive for cough, dyspnea on exertion, shortness of breath. Exam: 19:20 Head/Face: Normocephalic, atraumatic. Eyes: Pupils equal round and reactive to light, ps1 extra-ocular motions intact. Lids and lashes normal. Conjunctiva and sclera are non-icteric and not injected. Chest/axilla: Normal chest wall appearance and motion. Nontender with no deformity. No lesions are appreciated. Respiratory: Lungs have equal breath sounds bilaterally, clear to auscultation and percussion. No rales, rhonchi or wheezes noted. No increased work of breathing, no retractions or nasal flaring. 19:20 Constitutional: The patient appears alert, awake, anxious. 19:20 Cardiovascular: Rate: tachycardic, Rhythm: regular, Pulses: no pulse deficits are appreciated, Heart sounds: normal, JVD: is not appreciated. 19:20 Respiratory: the patient does not display signs of respiratory distress, Respirations: prolonged exhalation, shallow respirations, Breath sounds: are clear throughout. 19:20 Abdomen/GI: Inspection: abdomen appears normal, Bowel sounds: normal, Palpation: abdomen is soft and non-tender. 19:20 Psych: Behavior/mood is anxious, Judgement / Insight is normal. Vital Signs: 19:09 BP 181 / 110; Pulse 128; Resp 21; Temp 98.9; Pulse Ox 98% ; Weight 86.18 kg; Height 5 jl7 ft. 8 in. (172.72 cm); Pain 10/10; 21:31 BP 147 / 91; Pulse 97; Resp 18; Pulse Ox 99% on R/A; jm8 19:09 Body Mass Index 28.89 (86.18 kg, 172.72 cm) jl7 MDM: 19:47 Patient medically screened. ps1 21:29 Differential diagnosis: ACS, Coronary vasospasm, PE, Infection, Cocaine abuse, Alcohol ps1 Abuse, and others. Data reviewed: vital signs, nurses notes, lab test result(s), EKG, radiologic studies. Medication response: ativan. Improved HR and symptoms. Refusal of service: The patient/guardian displays adequate decision making capability and despite a detailed discussion of alternatives, benefits, risks, and consequences refuses: Patient states that he was feeling better and wanted to leave. On cellphone talking to friends. No acute distress. Was under no duress to stay. Ambulated out of ED without assistance. Had capacity despite his drug and alcohol use. Left ED after signing AMA form. . 04/26 19:16 Order name: Basic Metabolic Panel; Complete Time: 20:34 ps1 04/26 19:16 Order name: CBC with Diff; Complete Time: 20:24 ps1 04/26 19:16 Order name: LFT's; Complete Time: 20:34 ps1 04/26 19:16 Order name: Magnesium; Complete Time: 20:34 ps1 04/26 19:16 Order name: NT PRO-BNP; Complete Time: 20:34 ps1 04/26 19:16 Order name: PT-INR ps1 04/26 19:16 Order name: Troponin (emerg Dept Use Only); Complete Time: 20:34 ps1 04/26 19:16 Order name: XRAY Chest (1 view); Complete Time: 20:24 ps1 04/26 19:16 Order name: UDS; Complete Time: 20:34 ps1 04/26 19:19 Order name: ETOH Level; Complete Time: 20:47 ps1 04/26 20:07 Order name: Urine Dipstick-Ancillary; Complete Time: 20:14 EDMS 04/26 19:16 Order name: EKG; Complete Time: 19:17 ps1 04/26 19:16 Order name: Cardiac monitoring; Complete Time: 19:54 ps1 04/26 19:16 Order name: EKG - Nurse/Tech; Complete Time: 19:54 ps1 04/26 19:16 Order name: IV Saline Lock; Complete Time: 19:54 ps1 04/26 19:16 Order name: Labs collected and sent; Complete Time: 19:55 ps1 04/26 19:16 Order name: O2 Per Protocol; Complete Time: 19:55 ps1 04/26 19:16 Order name: O2 Sat Monitoring; Complete Time: 19:55 ps1 04/26 19:16 Order name: Urine Dipstick-Ancillary (obtain specimen); Complete Time: 20:07 ps1 EC:21 Rate is 115 beats/min. Rhythm is regular. QRS [place] is Normal. AL interval is normal. ps1 QRS interval is normal. QT interval is normal. Q waves are New in lead III. T waves are Normal. No ST changes noted. Clinical impression: Inferior MD - age indeterminate and Sinus tachycardia. Interpreted by me. Administered Medications: 19:55 Drug: Ativan (LORazepam) 1 mg Route: IVP; Site: right antecubital; jm8 21:34 Follow up: Response: No adverse reaction jm8 19:55 Drug: NS 0.9% 1000 ml Route: IV; Rate: 100 ml/hr; Site: right antecubital; jm8 21:33 Follow up: IV Status: Completed infusion jm8 20:20 Drug: Ativan (LORazepam) 1 mg Route: IVP; Site: right antecubital; jm8 21:35 Follow up: Response: No adverse reaction; Anxiety decreased jm8 Disposition Summary: 04/26/21 21:33 Left Against Medical Advice Location: Home jm8 Condition: Stable jm8 Signatures: Dispatcher [employer] Kemar Jolly RN RN jl7 Nilo Cutler MD MD ps1 Yazan Soliman RN RN jm8 Corrections: (The following items were deleted from the chart) 19:25 19:11 Social history: Smoking status: Patient reports the use of cigarette tobacco ps1 products, smokes one-half pack cigarettes per day, Patient uses alcohol, on a daily basis. claims drinking about a 6 pack/day. street drugs, cocaine, jl7
[2021-04-26 21:50] LABS: Protime INR 1.11
[2021-04-26 22:08] VITALS: TEMP 98.9
[2021-04-26 22:09] VITALS: BP 147/91; O2SAT 99
--- NOTE | 2021-04-27 07:29 | EKG ---
Test Date: 2021-04-26 Test Time: 19:21:46 Radio Board Operator: [place] MEASUREMENT RESULTS: Intervals: Rate: 115 SD: 140 QRSD: 102 QT: 346 QTc: 478 [place]: P: 50 SD: 140 QRS: -11 T: 62 INTERPRETIVE STATEMENTS: Sinus tachycardia Inferior infarct, age undetermined Possible Anterior infarct, age undetermined Abnormal ECG Compared to ECG 10/03/2020 22:06:29 Sinus rhythm no longer present Myocardial infarct finding still present Electronically Signed On 04-27-21 07:29:04 CDT by William Melara
== END 2021-04-26 21:33 | disposition left against medical advice (07) ==
LOC: ER 18:58
DX: R06.02 Shortness of breath (principal); I10 Essential (primary) hypertension; E03.9 Hypothyroidism, unspecified; F17.210 Nicotine dependence, cigarettes, uncomplicated; Z91.14 Patient's other noncompliance with medication regimen
CPT/HCPCS: 36415; 71045; 80048; 80076; 80307; 80320; 81003; 83735; 83880; 84484; 85025; 85610; 93005; 96361; 96374; 99283; J7030

== ENCOUNTER 2021-09-27 18:56 | Emergency (ER) | payer SELFPAY ==
--- OUTSIDE RECORDS SUMMARY | 2021-09-27 18:59 | XMS REPORT | Continuity of Care Document ---
:1985 Author Organization [facility] t Address [address] [place] [address] Care Team Providers Name Role Phone Quincy MARTINEZ Attending Clinician Lab, Fam Pob I Attending Clinician Unavailable QUINCY Attending Clinician Unavailable Chilango HDEZ Attending Clinician Unavailable Kathy FLAHERTY, H Attending Clinician Jeancarlos Richard Attending Clinician Doctor Unassigned, Name Attending Clinician Unavailable Problems Condition Condition Condition Status Onset Resolution Last Treating Co mments Source Name Details Category Date Date Treatment Clinician Date Hypertensi Hypertensi Disease Active U nivers on, on, 305 ity of [place] d type 00 [facility] Leg Leg Disease Active Univers swelling swelling 7-30 ity of 00:00: [place] 00 [facility] Elevated Elevated Disease Active Unive rs LFTs LFTs ity of [facility] Hypothyroi Hypothyroi Disease Active U nivers dism dism ity of [facility] Diabetes Diabetes Disease Active Unive rs ity of [facility] HLD HLD Disease Active Univers (hyperlipi (hyperlipi it y of demia) demia) [facility] Allergies, Adverse Reactions, Alerts Allergy Allergy Status Severity Reaction(s) Onset Inactive Treating Comm ents Source Name Type Date Date Clinician NO KNOWN Drug Active Univers ALLERGIE Class ity of S [facility] Social History Social Habit Start Date Stop Date Quantity Comments Source Exposure to Not sure University SARS-CoV-2 [facility] (event) Branch History of Cigarette Smoker Universi ty of tobacco use [facility] Alcohol Comment 2018-06-23 2018-06-23 8-9 mixed drinks Uni versity of 00:00:00 00:00:00 on weekends [facility] Tobacco use and 2018-06-23 2018-06-23 Never used Universit y of exposure 00:00:00 00:00:00 [facility] Alcohol intake 2018-06-23 2018-06-23 Current drinker Unive rsity of 00:00:00 00:00:[address] [facility] (finding) [place] Tobacco Comment 2016-03-31 2016-03-31 1 pack a month Unive rsity of 00:00:00 00:00:00 [facility] Sex [birth year] At [birth year] Universit y of 00:00:00 00:00:00 [facility] Smoking Status Start Date Stop Date Source Current some day smoker 2018-06-23 00:00:00 Univ ersity of [facility] Medications Ordered Filled Start Stop Current Ordering Indication Dosage Frequency Signature Comments Components Source Medication Medication Date Date Medication? Clinician (SIG) Name Name LEVOTHYROXI 2017-10 Yes [id number] TAKE 1 Univers NE 50 mcg 1-13 TABLET BY ity o f tablet 00:00: MOUTH [place] 00 EVERY Medical MORNING Branch LEVOTHYROXI 2018 Yes [id number] TAKE 1 Univers NE 50 mcg 1-13 TABLET BY ity o f tablet 00:00: MOUTH [place] 00 EVERY Medical MORNING Branch LEVOTHYROXI 2017-10 Yes [id number] TAKE 1 Univers NE 50 mcg 1-13 TABLET BY ity o f tablet 00:00: MOUTH [place] 00 EVERY Medical MORNING Branch LEVOTHYROXI 2018 Yes [id number] TAKE 1 Univers NE 50 mcg 1-13 TABLET BY ity o f tablet 00:00: MOUTH [place] 00 EVERY Medical MORNING Branch LEVOTHYROXI 2018 Yes [id number] TAKE 1 Univers NE 50 mcg 1-13 TABLET BY ity o f tablet 00:00: MOUTH [place] 00 EVERY Medical MORNING Branch LEVOTHYROXI 2017-10 Yes [id number] TAKE 1 Univers NE 50 mcg 1-13 TABLET BY ity o f tablet 00:00: MOUTH [place] 00 EVERY Medical MORNING Branch LEVOTHYROXI 2017-10 Yes [id number] TAKE 1 Univers NE 50 mcg 1-13 TABLET BY ity o f tablet 00:00: MOUTH [place] 00 EVERY Medical MORNING Branch losartan-hy Yes [id number] 1{tbl} Take 1 Univers drochloroth 9-10 tablet by ity of iazide 00:00: mouth [place] 100-12.5 mg 00 daily. Medica l per tablet Branch amLODIPine Yes [id number] 5mg Take 0.5 Univers 10 mg 9-10 tablets by ity of tablet 00:00: mouth [place] 00 daily. Medical Branch losartan-hy Yes [id number] 1{tbl} Take 1 Univers drochloroth 9-10 tablet by ity of iazide 00:00: mouth [place] 100-12.5 mg 00 daily. Medica l per tablet Branch amLODIPine Yes [id number] 5mg Take 0.5 Univers 10 mg 9-10 tablets by ity of tablet 00:00: mouth [place] 00 daily. Medical Branch losartan-hy Yes [id number] 1{tbl} Take 1 Univers drochloroth 9-10 tablet by ity of iazide 00:00: mouth [place] 100-12.5 mg 00 daily. Medica l per tablet Branch amLODIPine Yes [id number] 5mg Take 0.5 Univers 10 mg 9-10 tablets by ity of tablet 00:00: mouth [place] 00 daily. Medical Branch losartan-hy Yes [id number] 1{tbl} Take 1 Univers drochloroth 9-10 tablet by ity of iazide 00:00: mouth [place] 100-12.5 mg 00 daily. Medica l per tablet Branch amLODIPine Yes [id number] 5mg Take 0.5 Univers 10 mg 9-10 tablets by ity of tablet 00:00: mouth [place] 00 daily. Medical Branch losartan-hy Yes [id number] 1{tbl} Take 1 Univers drochloroth 9-10 tablet by ity of iazide 00:00: mouth [place] 100-12.5 mg 00 daily. Medica l per tablet Branch amLODIPine Yes [id number] 5mg Take 0.5 Univers 10 mg 9-10 tablets by ity of tablet 00:00: mouth [place] 00 daily. Medical Branch losartan-hy Yes [id number] 1{tbl} Take 1 Univers drochloroth 9-10 tablet by ity of iazide 00:00: mouth [place] 100-12.5 mg 00 daily. Medica l per tablet Branch amLODIPine 2017- Yes [id number] 5mg Take 0.5 Univers 10 mg 9-10 tablets by ity of tablet 00:00: mouth [place] 00 daily. Medical Branch losartan-hy 2017- Yes [id number] 1{tbl} Take 1 Univers drochloroth 9-10 tablet by ity of iazide 00:00: mouth [place] 100-12.5 mg 00 daily. Medica l per tablet Branch amLODIPine Yes [id number] 5mg Take 0.5 Univers 10 mg 9-10 tablets by ity of tablet 00:00: mouth [place] 00 daily. Medical Branch Procedures Procedure Date / Time Performed Performing Clinician Sourc e COVID-19 (PCR 2020-07-14 18:19:00 Bre Petit [facility] MOLECULAR TESTING) Medical Bran h Encounters Start End Encounter Admission Attending Care Care Encounter Source Date/Time Date/Time Type Type Clinicians Facility Department ID 2021-02-02 2021-02-02 Telephone [facility] [id number] Univers 00:00:00 00:00:00 [facility] [id number] it y of [place] [id number] Vasiliy as Professio [phone] [place] [address] Office [address] 2021-02-02 2021-02-02 Telephone LESA Chamorro [id number] 00:00:00 00:00:00 [facility] [id number] [place] [id number] Professio [phone] [place] [address] [address] 2021-01-31 2021-01-31 Laboratory Lab, [facility] [id number] 11:41:15 12:01:15 Only Fam Pob I Health [id number] [place] [phone] [facility] Office Building One 2021-01-31 2021-01-31 Laboratory Lab, [facility] Fam Pob I [facility] [id number] [facility] 11:41:15 12:01:15 Only Kailey [facility] [id number] ity of [place] [id number] Vasiliy as Professio [phone] [place] dic[place]al [address] [place] [address] Office Building One 2021-01-31 2021-01-[address] [facility] [id number] Univers 11:40:00 11:40:00 [id number] ity of [facility] 2021-01-31 2021-01-31 [facility] [id number] Univers 11:40:00 11:40:00 MINGO ity of [facility] 2020-10-01 2020-10-01 Nurse MORRO Kee [id number] 00:00:00 00:00:00 Triage Columba ORTIZY [id number] [facility] [id number] [id number] 2020-10-01 2020-10-01 Nurse MORRO Kee [id number] Univers 00:00:00 00:00:00 Triage Columba LUNA [id number] it y of [facility] [id number] Vasiliy as [phone] [address] 2020-07-16 2020-07-16 Telephone MORRO Chavez [id number] [facility] 00:00:00 00:00:00 Sushant LUNA [id number] i ty [facility] [id number] Vasiliy as [phone] [address] 2020-07-14 2020-07-14 Laboratory Lab, [facility] [id number] 13:11:18 13:44:38 Only Fam Pob I Health [id number] [place] [phone] [facility] Office Building One 2020-07-14 2020-07-14 Laboratory Lab, [facility] Fam Pob I [facility] 1.2. [id number] [facility] 13:11:18 13:44:38 Only Bre Petit A Health [id number] ity of [place] [id number] Vasiliy as Professio [phone] [place] dical nal [address] [place] Office [address] One 2020-07-14 2020-07-[address] [facility] [id number] Univers 13:20:00 13:20:00 ity of [facility] 2020-07-14 2020-07-[address] [facility] [id number] Univers 13:20:00 13:20:00 ity of [facility] 2020-07-14 2020-07-14 Letter Doctor MORRO [id number] Univers 00:00:00 00:00:00 (Out) Unassigned, JEREMY [id number] ity of [place] [facility] [id number] Vasiliy as [phone] [address] Results Test Description Test Time Test Comments Results Result Comments Source COVID-19 (PCR MOLECULAR TESTING) 2020-07-15 23:36:00 Test Item Value Reference Range Interpretation Comme nts SARS-CoV-2 PCR (test code = Positive Not Detected A [id number]) TERESO (test code = TERESO) [employer] Aptima SARS-CoV-2 Assay is a nucleic acid amplification test intended for the qualitative detection of RNA from SARS-CoV-2 from nasopharyngeal (MANUSCRIPT READER) specimens. ?It is used under Emergency Use Authorization (EUA) by FDA. A positive result is indicative of the presence of SARS-CoV-2 RNA. ?Clinical correlation with patient history and other diagnostic information is necessary to determine patient infection status. A negative (Not Detected) result does not preclude SARS-CoV-2 infection. ?Clinical correlation with patient history and other diagnostic information should be used in patient management decisions. Invalid: Unable to generate a valid test result on this specimen. ?Please submit a new specimen for repeat testing if clinically indicated. Lab Interpretation (test code = Abnormal 26753-3) [facility]
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
[2021-09-27 21:13] VITALS: BP 112/79; TEMP 97.1; O2SAT 98
== END 2021-09-27 20:42 | disposition left against medical advice (07) ==
LOC: ER 18:56
DX: S09.90XA Unspecified injury of head, initial encounter (principal); R41.0 Disorientation, unspecified; Z53.21 Procedure and treatment not carried out due to patient leaving prior to being seen by health care provider
CPT/HCPCS: 99281